=== PATIENT | male | born 1950 | race American Indian/Alaskan Native ===

== ENCOUNTER 2016-12-28 19:48 | Observation (INO) | payer MEDICARE ==
[2016-12-28 19:49] VITALS: BMI 27.8
--- NOTE | 2016-12-28 20:13 | ED PDOC ---
Arrival/HPI - General Chief Complaint: Chest Pain Time Seen by Provider: 12/28/16 19:50 Historian: Patient - History of Present Illness Narrative History of Present Illness (Text): 12/28/16 20:10 Patient is a 66 year old male whose past medical history includes hypertension, who presents to the emergency department with sudden onset of midsternal chest pain described as heaviness since 16:00. Patient states he was sitting, eating when the pain began. He states the episode lasted for 5-10 minutes but resolved spontaneously. Patient states around 17:30 he felt the pain again. Denies shortness of breath, sweats, lightheadedness, fever, cough, abdominal pain, or back pain. He states he has never had this pain before. Denies family cardiac history. Denies tobacco use. PMD: Dr. Brianna Guerra Time/Duration: 4-6 hours Symptom Onset: Sudden Symptom Course: Unchanged Modifying Factors (Text): None Associated Symptoms (Text): None Past Medical History - Provider Review Nursing Documentation Reviewed: Yes - Past History Past History: No Previous - Infectious Disease Hx of Infectious Diseases: None - Tetanus Immunization Tetanus Immunization: Unknown - Past Medical History Past Medical History: No Previous - Cardiac Hx Pacemaker: No - Neurological Hx Paralysis: No - Hematological/Oncological Hx Blood Transfusions: No - Musculoskeletal/Rheumatological Hx Musculoskeletal Disorders: No - Psychiatric Hx Emotional Abuse: No Hx Physical Abuse: No Hx Substance Use: No - Past Surgical History Past Surgical History: No Previous - Anesthesia Hx Anesthesia Reactions: No Hx Malignant Hyperthermia: No - Suicidal Assessment Feels Threatened In Home Enviroment: No Family/Social History - Physician Review Nursing Documentation Reviewed: Yes Family/Social History: Unknown Family HX Smoking Status: Unknown If Ever Smoked Hx Alcohol Use: No Hx Substance Use: No Hx Substance Use Treatment: No Allergies/Home Meds Allergies/Adverse Reactions: Allergies No Known Allergies Allergy (Verified 06/29/12 06:54) Home Medications: Home Meds Medication Instructions Recorded Confirmed Lisinopril [Zestril] 10 mg PO ONCE 12/28/16 12/28/16 Review of Systems - Review of Systems Constitutional: absent: Fatigue Eyes: absent: Vision Changes ENT: absent: Hearing Changes Respiratory: absent: SOB Cardiovascular: Chest Pain Gastrointestinal: absent: Abdominal Pain, Diarrhea, Nausea, Vomiting Genitourinary Male: absent: Dysuria, Frequency, Hematuria Musculoskeletal: absent: Back Pain Skin: absent: Rash Neurological: absent: Headache Endocrine: absent: Diaphoresis Psychiatric: absent: Depression Physical Exam Vital Signs Reviewed: Yes Vital Signs Temp Pulse Resp BP Pulse Ox 12/28/16 19:53 98.4 F 59 L 20 153/86 H 98 Temperature: Afebrile Blood Pressure: Normal Pulse: Regular Respiratory Rate: Normal Appearance: Positive for: Well-Appearing, Non-Toxic, Comfortable Pain Distress: None Mental Status: Positive for: Alert and Oriented X 3 - Systems Exam Head: Present: Atraumatic, Normocephalic Pupils: Present: PERRL Extroacular Muscles: Present: EOMI Conjunctiva: Present: Normal Mouth: Present: Moist Mucous Membranes Neck: Present: Normal Range of Motion Respiratory/Chest: Present: Clear to Auscultation, Good Air Exchange. No: Respiratory Distress, Accessory Muscle Use Cardiovascular: Present: Regular Rate and Rhythm, Normal S1, S2. No: Murmurs Abdomen: Present: Normal Bowel Sounds. No: Tenderness, Distention, Peritoneal Signs Back: Present: Normal Inspection Upper Extremity: Present: Normal Inspection. No: Cyanosis, Edema Lower Extremity: Present: Normal Inspection. No: Edema Neurological: Present: GCS=15, CN II-XII Intact, Speech Normal Skin: Present: Warm, Dry, Normal Color. No: Rashes Psychiatric: Present: Alert, Oriented x 3, Normal Insight, Normal Concentration Medical Decision Making ED Course and Treatment: Impression: Patient is a 66 year old male whose past medical history includes hypertension, who presents to the emergency department with sudden onset of midsternal chest pain described as heaviness since 16:00. Differential Diagnosis included but are not limited to: ACS vs ptx vs pna Plan: -- Chest X-ray -- Aspirin -- Labs -- Reassess and disposition Prior Visits: Notes and results from previous visits were reviewed. Patient had an echocardiogram in 11/08 which showed normal ejection fraction and mild pulmonary hypertension. Progress Notes: 12/28/16 20:56 Trop x 1 negative. 12/28/16 21:[address] Chisholm who agrees with observation for chest pain due to clinical presentation, risk factors, and no prior cardiac workup, requesting Troponin every 6 hours [address] to consult Dr[address] Birch. - Lab Interpretations Lab Results: 12/28/16 20:00 12/28/16 20:00 Lab Results 12/28/16 20:00: Sodium 138, Potassium 3.9, Chloride 102, Carbon Dioxide 27, Anion Gap 13, BUN 16, Creatinine 0.9, Est GFR ( Amer) > 60, Est GFR (Non- Af Amer) > 60, Random Glucose 92, Calcium 9.3, Total Bilirubin 0.6, AST 31, ALT 32, Alkaline Phosphatase 86, Total Creatine Kinase 237 H, CK-MB (CK-2) 2.1, CK- MB (CK-2) % Cancelled, Troponin I < 0.01, Total Protein 8.4 H, Albumin 4.3, Globulin 4.1, Albumin/Globulin Ratio 1.0 L 12/28/16 20:00: D-Dimer, Quantitative 0.38 12/28/16 20:00: WBC 5.6 D, RBC 4.72, Hgb 14.2, Hct 40.9 L, MCV 86.7, MCH 30.1, MCHC 34.7, RDW 12.8, Plt Count 215, MPV 9.1, Gran % 38.9 L, Lymph % (Auto) 51.2 H, Hawkins % (Auto) 8.3 H, Eos % (Auto) 1.4 L, Baso % (Auto) 0.2, Gran # 2.16, Lymph # 2.8, Hawkins # 0.5, Eos # 0.1, Baso # 0.01 - RAD Interpretation Radiology Orders: 12/28/16 20:10 CHEST PORTABLE [RAD] Stat - EKG Interpretation EKG Interpretation (Text): EKG shows NSR at 62 BPM, no ST elevations. Interpreted by me. Interpreted by ED Physician: Yes Type: 12 lead EKG - Medication Orders Current Medication Orders: Discontinued Medications Aspirin (Aspirin Chewable) 324 mg PO STAT STA Stop: 12/28/16 20:11 Last Admin: 12/28/16 20:17 Dose: 324 mg - Elhamibe Statement The provider has reviewed the documentation as recorded by the Dilshad Andrea Provider Scribe Attestation: All medical record entries made by the Dilshad were at my direction and personally dictated by me. I have reviewed the chart and agree that the record accurately reflects my personal performance of the history, physical exam, medical decision making, and the department course for this patient. I have also personally directed, reviewed, and agree with the discharge instructions and disposition. Disposition/Present on Arrival - Present on Arrival Any Indicators Present on Arrival: No History of DVT/PE: No History of Uncontrolled Diabetes: No Urinary Catheter: No History of Decub. Ulcer: No History Surgical Site Infection Following: None - Disposition Have Diagnosis and Disposition been Completed?: Yes Diagnosis: Chest pain Disposition: HOSPITALIZED Disposition Time: 21:22 Patient Plan: Observation Condition: FAIR
[2016-12-28 20:18] LABS: ADD MANUAL DIFF? NO
[2016-12-28 20:22] LABS: BASO # 0.01 K/mm3 (0.0-2.0); BASO % 0.2 % (0.0-3.0); EOS # 0.1 (0.0-0.7); EOS % 1.4 % (1.5-5.0); GRAN # 2.16 (1.4-6.5); GRAN % 38.9 % (50.0-68.0); HEMATOCRIT 40.9 % (42.0-52.0); LYMPH # 2.8 (1.2-3.4); LYMPH % 51.2 % (22.0-35.0); MEAN CELL VOLUME 86.7 fL (80.0-105.0); MEAN CORPUSCULAR HEMOGLOBIN 30.1 pg (25.0-35.0); MEAN CORPUSCULAR HGB CONC 34.7 g/dl (31.0-37.0); MEAN PLATELET VOLUME 9.1 fl (7.0-11.0); MONO # 0.5 (0.1-0.6); MONO % 8.3 % (1.0-6.0); PLATELET COUNT 215 10^3/uL (120.0-450.0); RED CELL DISTRIBUTION WIDTH 12.8 % (11.5-14.5); WHITE BLOOD COUNT 5.6 10^3/ul (4.5-11.0)
[2016-12-28 20:30] LABS: ALKALINE PHOSPHATASE 86 U/L (38-133); ALT/SGPT 32 U/L (7-56); AST/SGOT 31 U/L (15-59); BILIRUBIN,TOTAL 0.6 mg/dL (0.2-1.3); BLOOD UREA NITROGEN 16 mg/dL (7-21); CALCIUM 9.3 mg/dL (8.4-10.5); CARBON DIOXIDE 27 mmol/L (21-33); CHLORIDE 102 mmol/L (98-107); GFR AFRICAN-AMERICAN > 60; GLUCOSE,RANDOM 92 mg/dL (70-110); POTASSIUM 3.9 mmol/L (3.6-5.0); SODIUM 138 mmol/L (132-148); TOTAL PROTEIN 8.4 g/dL (5.8-8.3)
[2016-12-28 20:42] LABS: TROPONIN I < 0.01 ng/mL
[2016-12-28 21:51] VITALS: O2SAT 97
[2016-12-28 23:44] VITALS: RESP 20
[2016-12-28 23:59] VITALS: TEMP 98.4
[2016-12-29 00:23] VITALS: BP 153/84; PULSE 59
--- NOTE | 2016-12-29 07:06 | HP ---
HISTORY OF PRESENT ILLNESS: I was called down to the Emergency Room this evening to see the patient. He is a 66-year-old man who presents with chest pain described as a heaviness since earlier in the day. He was sitting and eating and the pain began. It lasted 5-10 minutes and resolved, then he fel t the pain again, no shortness of breath. It went into his left arm a little bit and it is the first time it happened. PAST MEDICAL HISTORY: Nothing. Denies all past medical history. PAST SURGICAL HISTORY: Denies surgical history. FAMILY HISTORY: Denies any family history. SOCIAL HISTORY: No alcohol, no drugs. No substance abuse. No smoking. ALLERGIES: No known drug allergies. MEDICATIONS: He does take lisinopril, so I went back and asked him if he had hypertension and he corky d yes. He takes Zestril 10 mg once a day. REVIEW OF SYSTEMS: He had no acute vision changes or hearing changes, no neck pain, no sore throat, no shortness of breath. He had chest pain, tightness, pressure. No abdominal pain, diarrhea, nausea , vomiting. No problems urinating. No back pain. No rashes. No headaches. No sweating, no dizzin ess. No depression. PHYSICAL EXAMINATION: VITAL SIGNS: He had a 98.4 temp, 57 pulse, 20 respiratory rate, 153/86 blood pressure, 98% O2 sat on room air. GENERAL: Head is atraumatic, normocephalic. He is well appearing now. He is comfortable when I see him in the Emergency Room. He understands why he is there; he would prefer to go home, but he will stay overnight and get the blood test and a cardiology evaluation. HEENT: Head is atraumatic, normocephalic. Extraocular muscles are intact. Pupils equal, reactive t o light and accommodation. His throat is moist, no erythema. NECK: Supple, no JVD. HEART: Regular rate. Normal S1, S2. LUNGS: Clear to auscultation bilaterally. No wheezes, rhonchi or rales. ABDOMEN: Soft, nontender, positive bowel sounds, no guarding, no rebound, no CVA tenderness. EXTREMITIES: Have no edema. NEUROLOGIC: GCS is 15. Cranial nerves II-XII grossly intact. Speech is normal. SKIN: Warm and dry. PSYCHIATRIC: Alert and oriented x 3. LABORATORY DATA: He had multiple tests. He had a 5.6 white count, 14.2 hemoglobin, 40.9 hematocrit with 215 platelets. His D-dimer is 0.38. He has a 138 sodium, potassium 3.9, chloride 102, carbon d ioxide 27, anion gap of 13, BUN of 16, creatinine 0.9, GFR is greater than 60, sugar is 92, calcium i s 9.3, total bili is 0.6, AST is 31, ALT is 32, alkaline phosphatase is 86, total creatine kinase is 237. His troponin less than 0.01, total protein is 8.4, albumin is 4.3. He has a chest x-ray that i s pending. PLAN: He is going to have 2 more troponins this evening. He is going to have a consult with cardiotrevin anne. He will be on aspirin. I will put him back on his cardiac medication, heart healthy diet. He is on observation status. If he does well by tomorrow morning, we will discharge him and probably se nd him out for an outpatient stress test. I am hoping the troponin will stay flat and he has no more chest pain. The nurses will call me if anything changes. The patient is here for chest pain, rule out myocardial infarction on observation status. Paco Chisholm DO cc: [id number] TT: 12/29/2016 07:05:23 oh
[2016-12-29 08:02] LABS: ALKALINE PHOSPHATASE 73 U/L (38-133); ALT/SGPT 34 U/L (7-56); AST/SGOT 25 U/L (15-59); BILIRUBIN,TOTAL 0.6 mg/dL (0.2-1.3); BLOOD UREA NITROGEN 12 mg/dL (7-21); CALCIUM 9.1 mg/dL (8.4-10.5); CARBON DIOXIDE 26 mmol/L (21-33); CHLORIDE 105 mmol/L (95-110); GFR AFRICAN-AMERICAN > 60; GLUCOSE,RANDOM 94 mg/dL (70-110); POTASSIUM 3.8 mmol/L (3.6-5.0); SODIUM 139 mmol/L (132-148); TOTAL PROTEIN 7.4 g/dL (5.8-8.3)
[2016-12-29 08:03] LABS: HEMATOCRIT 39.6 % (42.0-52.0); MEAN CELL VOLUME 86.7 fL (80.0-105.0); MEAN CORPUSCULAR HEMOGLOBIN 29.3 pg (25.0-35.0); MEAN CORPUSCULAR HGB CONC 33.8 g/dl (31.0-37.0); MEAN PLATELET VOLUME 9.2 fl (7.0-11.0); RED CELL DISTRIBUTION WIDTH 12.9 % (11.5-14.5); WHITE BLOOD COUNT 5.4 10^3/ul (4.5-11.0)
--- NOTE | 2016-12-29 10:26 | CON ---
DATE: 12/29/2016 The patient is in room 269, bed 2. I am doing this consult on behalf of Dr. Birch, whom I am covering. REASON FOR CONSULTATION: Chest pain. HISTORY OF PRESENT ILLNESS: The patient is a 66-year-old male who has known case of hypertension and on medication, but 3 days he did not take any medication, then he developed yesterday pressure-like chest pain which lasted only 5 minutes. He was at home at rest at that time, so he walked from [address] [place] [address] to Emergency Room of [facility] without any chest pressure, chest pain, pressure-l marly. Pressure-like was only 5 minutes at home. After the pain was relieved, he started walking to [facility] Emergency Room. Prior to that, he had no history of exertional chest pains or shortness of breath or palpitation. PAST MEDICAL HISTORY: Positive for hypertension. He also had a hernia surgery in the past. PERSONAL HISTORY: Denies smoking. Drinks only rarely socially. FAMILY HISTORY: Sister has diabetes mellitus. HOME MEDICATIONS: The patient did not take medication for blood pressure for 3 days. REVIEW OF SYSTEMS: All the systems were reviewed, positives mentioned in the history. PHYSICAL EXAMINATION: VITAL SIGNS: Blood pressure 153/84, respirations 20, pulse 53, temperature 98.4. HEENT: Head is normocephalic. Eyes: Pupils normal. Conjunctivae normal. Nose and throat normal. NECK: JVP low. Carotids equal. THORAX: AP diameter normal. LUNGS: Clear. CARDIOVASCULAR: S1, S2. ABDOMEN: Soft, nontender, no organomegaly. Bowel sounds normal. EXTREMITIES: No clubbing, no cyanosis. LABORATORY DATA: WBC 5.4, hemoglobin 13.4. Yesterday, hemoglobin was 14.2. Hematocrit 39.6, yester day was 40.9. Platelets 220. Sodium 139, potassium 3.8, BUN 12, creatinine 0.8. Random glucose 94. Calcium 9.1. AST, ALT normal. Troponin x 3 negative. Total protein 7.4, albumin 3.7. EKG showed regular sinus rhythm, borderline criteria for LVH. Chest x-ray is clear. DIAGNOSES: Chest pain like pressure, rule out coronary artery disease, hypertension, poorly complian t. Did not take medicine for 3 days. Troponin x 3 is negative. PLAN: The patient put on lisinopril 10 mg and patient also received aspirin. Advised patient to res tart his medication and take an aspirin a day and he follows where the family sees on outpatient. He promised that he will see primary physician on Saturday. He will come back for a stress test as outpa tient. All instructions have been given to him. Cardiology department will get in touch with him al so for scheduling the stress test. In the meantime, I also told the patient if he gets any pressure like pain, he should come back to Emergency Room right away. Luis Eduardo Cardenas MD cc: [phone] TT: 12/29/2016 10:26:28 Confirmation # [id number] Dictation # [id number] lonnie
--- NOTE | 2016-12-29 11:05 | RAD ---
HISTORY: chest pain COMPARISON: No prior. FINDINGS: LUNGS: No active pulmonary disease. PLEURA: No significant pleural effusion identified, no pneumothorax apparent. CARDIOVASCULAR: Normal. OSSEOUS STRUCTURES: No significant abnormalities. VISUALIZED UPPER ABDOMEN: Normal. OTHER FINDINGS: None. IMPRESSION: No active disease.
--- NOTE | 2016-12-29 15:37 | CARD ---
APPROVED REPORT EKG Measurement Heart [id number] <Conclusion> Sinus rhythm with premature atrial complexes Minimal voltage criteria for LVH, may be normal variant Borderline ECG
--- NOTE | 2016-12-29 15:55 | DS ---
I saw him this morning in his room at [facility] on telemetry with Dr. Cardenas, the cardio logist. He is resting comfortably in bed. He slept well, he is eating well. No more chest pain. Yoni wallis wants to go home. PHYSICAL EXAMINATION: VITAL SIGNS: 98.4 temp, 59 pulse, 145/83 blood pressure, 20 respiratory rate, 97% O2 sat on room air . HEENT: Head is atraumatic, normocephalic. Throat is moist. NECK: Supple. HEART: Regular rate. LUNGS: Clear to auscultation with decreased breath sounds. ABDOMEN: Soft. EXTREMITIES: No edema. MEDICATIONS: He is currently on aspirin and Zestril. I put him back on his medications for his bloo d pressure. LABORATORY DATA: He has a 139 sodium, potassium 3.8, BUN 12, creatinine 0.8, GFR is greater than 60, sugar is 94, calcium is 9.1, total bili is 0.6, AST is 25, ALT is 34, alk phosphatase 73, total prot ein is 7.4. All 3 troponins are less than 0.01. D-dimer is 0.38. He was seen by Dr. Cardenas. He is going to schedule him for an outpatient stress test. The patient h as his medicine at home. He said he stopped taking them 3-4 days and now he will take them again. Yoni wallis will also add a baby aspirin 81 mg to his list of medications plus the Zestril, which is 10 mg once a day. He will follow up with his primary care doctor this week. The patient came in with chest pa in. It was not cardiac. Paco Chisholm DO cc: [id number] TT: 12/29/2016 15:54:59 rn
== END 2016-12-29 11:39 | disposition home or self-care (01) ==
LOC: ED 19:48 → ERH 21:08 → 2RNO 22:07
PROVIDERS: ADMIT Family Medicine; ATTEND Family Medicine
DX: R07.89 Other chest pain (principal); I10 Essential (primary) hypertension; Z91.14 Patient's other noncompliance with medication regimen; Z83.3 Family history of diabetes mellitus
CPT/HCPCS: 36415; 71010; 80053; 82550; 82553; 84484; 85025; 85027; 85378; 93005; 99285; G0378

== ENCOUNTER 2017-04-14 08:44 | Observation (INO) | payer MEDICARE ==
[2017-04-14] MEDS ORDERED: Sodium Chloride 0.9% 500 ML IV STA (09:18)
--- NOTE | 2017-04-14 09:23 | ED PDOC ---
Arrival/HPI - General Chief Complaint: Weakness/Neurological Deficit Time Seen by Provider: 04/14/17 09:07 Historian: Patient - History of Present Illness Narrative History of Present Illness (Text): 04/14/17 09:19 66yr old male with hx of htn presents today with generalized weakness, fatigue, dizziness that started last night. denies cp or sob at present time. no fever/ chills. denies abdominal pain, no n/v/d/c. no urinary symptoms. denies headache. no medications take at home. pt states he did not take his BP medication today. no other complaints. Symptom Onset: Gradual Symptom Course: Worsening Quality: Unable to Describe Past Medical History - Provider Review Nursing Documentation Reviewed: Yes - Travel History Have you recently traveled outside [place] w/in the past 3 mons?: No - Past History Past History: No Previous - Infectious Disease Hx of Infectious Diseases: None - Tetanus Immunization Tetanus Immunization: Unknown - Past Medical History Past Medical History: No Previous - Cardiac Hx Cardiac Disorders: Yes Hx Hypertension: Yes - Neurological Hx Paralysis: No - Hematological/Oncological Hx Blood Transfusions: No - Musculoskeletal/Rheumatological Hx Falls: No - Psychiatric Hx Emotional Abuse: No Hx Physical Abuse: No Hx Substance Use: No - Past Surgical History Past Surgical History: No Previous - Surgical History Hx Inguinal Hernia Repair: Yes - Anesthesia Hx Anesthesia Reactions: No Hx Malignant Hyperthermia: No - Suicidal Assessment Feels Threatened In Home Enviroment: No Family/Social History - Physician Review Nursing Documentation Reviewed: Yes Family/Social History: Unknown Family HX Smoking Status: Never Smoked Hx Alcohol Use: No Hx Substance Use: No Hx Substance Use Treatment: No Allergies/Home Meds Allergies/Adverse Reactions: Allergies No Known Allergies Allergy (Verified 04/14/17 09:05) Home Medications: Home Meds Medication Instructions Recorded Confirmed Lisinopril [Zestril] 10 mg PO ONCE 12/28/16 04/14/17 Review of Systems - Review of Systems Constitutional: Fatigue. absent: Fevers ENT: absent: Sinus Congestion Respiratory: absent: SOB, Cough Cardiovascular: absent: Chest Pain, Palpitations Gastrointestinal: absent: Abdominal Pain, Nausea, Vomiting Genitourinary Male: absent: Dysuria, Frequency, Hematuria Musculoskeletal: absent: Arthralgias, Back Pain, Neck Pain Skin: absent: Rash, Pruritis Neurological: Dizziness. absent: Headache, Focal Weakness Psychiatric: absent: Anxiety, Depression, Suicidal Ideation Physical Exam Vital Signs Reviewed: Yes Vital Signs Temp Pulse Resp BP Pulse Ox 04/14/17 09:01 98.5 F 54 L 16 151/85 H 97 Temperature: Afebrile Blood Pressure: Hypertensive Pulse: Regular Respiratory Rate: Normal Appearance: Positive for: Well-Appearing, Non-Toxic, Comfortable Pain Distress: None Mental Status: Positive for: Alert and Oriented X 3 Finger Stick Blood Glucose: 109 - Systems Exam Head: Present: Atraumatic Mouth: Present: Moist Mucous Membranes Neck: Present: Normal Range of Motion Respiratory/Chest: Present: Clear to Auscultation, Good Air Exchange. No: Respiratory Distress, Accessory Muscle Use Cardiovascular: Present: Regular Rate and Rhythm, Normal S1, S2. No: Murmurs Abdomen: Present: Normal Bowel Sounds. No: Tenderness, Distention, Peritoneal Signs, Rebound, Guarding Back: Present: Normal Inspection Upper Extremity: Present: Normal Inspection Lower Extremity: Present: Edema (+ 1+ edema bilaterally), NORMAL PULSES, Normal ROM, Neurovascularly Intact, Capillary Refill < 2 s. No: CALF TENDERNESS, Tenderness Neurological: Present: GCS=15 Skin: Present: Warm, Dry, Normal Color. No: Rashes Psychiatric: Present: Alert, Oriented x 3 Medical Decision Making ED Course and Treatment: 04/14/17 09:22 66yr old male with dizziness, fatigue, generalized weakness. Baseline NIH score zero. cbc wnl cmp wnl trop wnl cxr; wnl ua: + trace blood, no leukocytes head ct: FINDINGS HEMORRHAGE: No intracranial hemorrhage. BRAIN: No mass effect or edema. No atrophy or chronic microvascular ischemic changes. VENTRICLES: Unremarkable. No hydrocephalus. CALVARIUM: No calvarial fracture. Punctate radiopaque foreign bodies or calcifications are seen within the subcutaneous soft tissues of the scalp, predominantly near the vertex, uncertain significance. PARANASAL SINUSES: Unremarkable as visualized. No significant inflammatory changes. MASTOID AIR CELLS: Unremarkable as visualized. No inflammatory changes. OTHER FINDINGS: None. IMPRESSION: No intracranial mass, hemorrhage or evidence of acute infarct. ekg; Sinus bradycardia at 52 bpm normal axis and no ST elevations discussed results with patient in depth. asa given PO pt does not meet criteria for TPA: NIH score of zero, symptom onset >4.5 hours. pt with dizziness, weakness, near syncope will admit observational status for near syncope and generalized weakness. lives alone. fall risk. case discussed with dr. manrique; accepts observational status admission impression; dizziness, weakness, near syncope, b/l lower leg edema observational status. - Lab Interpretations Lab Results: 04/14/17 09:26 04/14/17 09:26 Lab Results 04/14/17 09:26: Urine Color Yellow, Urine Appearance Clear, Urine pH 5.5, Ur Specific [place] >= 1.030, Urine Protein Trace H, Urine Glucose (UA) Negative, Urine Ketones Negative, Urine Blood Trace-intact H, Urine Nitrate Negative, Urine Bilirubin Negative, Urine Urobilinogen 1.0 H, Ur Leukocyte Esterase Negative, Urine RBC 1 - 3, Urine WBC 0 - 2, Ur Epithelial Cells None, Amorphous Sediment Trace, Urine Bacteria Few 04/14/17 09:26: WBC 5.1, RBC 4.81, Hgb 14.4, Hct 42.2, MCV 87.7, MCH 29.9, MCHC 34.1, RDW 13.1, Plt Count 217, MPV 8.9, Gran % 53.7, Lymph % (Auto) 35.0, Vance % (Auto) 8.9 H, Eos % (Auto) 2.2, Baso % (Auto) 0.2, Gran # 2.71, Lymph # 1.8, Vance # 0.5, Eos # 0.1, Baso # 0.01 04/14/17 09:26: Sodium 141, Potassium 3.9, Chloride 107, Carbon Dioxide 25, Anion Gap 13, BUN 19, Creatinine 0.8, Est GFR ( Amer) > 60, Est GFR (Non- Af Amer) > 60, Random Glucose 102, Calcium 9.6, Total Bilirubin 0.5, AST 36, ALT 35, Alkaline Phosphatase 82, Lactate Dehydrogenase 511, Total Creatine Kinase 292 H, CK-MB (CK-2) 1.6, CK-MB (CK-2) % Cancelled, Troponin I < 0.01, Total Protein 7.9, Albumin 4.2, Globulin 3.6, Albumin/Globulin Ratio 1.2 - RAD Interpretation Radiology Orders: 04/14/17 09:18 HEAD W/O CONTRAST [CT] Stat CHEST PORTABLE [RAD] Stat - Medication Orders Current Medication Orders: Discontinued Medications Sodium Chloride (Sodium Chloride 0.9%) 500 mls @ 999 mls/hr IV .Q31M STA Stop: 04/14/17 09:48 Last Admin: 04/14/17 09:34 Dose: 999 mls/hr NIHSS Scale ([place]) Time Performed: 09:18 - How Severe is the [place] Baseline Level of Consciousness: 0=Alert LOC to Questions: 0=Both comments correct LOC to commands: 0=Obeys both correctly Best Gaze: 0=Normal Visual: 0=No visual loss Facial: 0=Normal Motor Arm - Left: 0=No drift Motor Arm - Right: 0=No drift Motor Leg - Left: 0=No drift Motor Leg - Right: 0=No drift Limb Ataxia: 0=Absent Sensory: 0=Normal Best Language: 0=No aphasia Dysarthia: 0=Normal articulation Extinction & Inattention (Neglect): 0=Normal, no object Score: 0 Risk Level: No Stroke Risk Disposition/Present on Arrival - Present on Arrival Any Indicators Present on Arrival: No History of DVT/PE: No History of Uncontrolled Diabetes: No Urinary Catheter: No History of Decub. Ulcer: No History Surgical Site Infection Following: None - Disposition Have Diagnosis and Disposition been Completed?: Yes Diagnosis: Near syncope, Dizziness, Edema of both legs Disposition: HOSPITALIZED Disposition Time: 10:30 Patient Plan: Observation, Telemetry (remote tele) Patient Problems: Current Active Problems Problem Status Onset Dizziness Acute Edema of both legs Acute Near syncope Acute Condition: FAIR [facility], [Non-Staff] - Follow up with primary Forms: [employer] (Nepali)
[2017-04-14 09:31] LABS: BASO # 0.01 K/mm3 (0.0-2.0); BASO % 0.2 % (0.0-3.0); EOS # 0.1 (0.0-0.7); EOS % 2.2 % (1.5-5.0); GRAN # 2.71 (1.4-6.5); GRAN % 53.7 % (50.0-68.0); HEMATOCRIT 42.2 % (42.0-52.0); LYMPH # 1.8 (1.2-3.4); MEAN CELL VOLUME 87.7 fl (80.0-105.0); MEAN CORPUSCULAR HEMOGLOBIN 29.9 pg (25.0-35.0); MEAN CORPUSCULAR HGB CONC 34.1 g/dl (31.0-37.0); MEAN PLATELET VOLUME 8.9 fl (7.0-11.0); MONO # 0.5 (0.1-0.6); MONO % 8.9 % (1.0-6.0); PH,URINE 5.5 (4.7-8.0); RED CELL DISTRIBUTION WIDTH 13.1 % (11.5-14.5); URINE BILIRUBIN NEGATIVE (NEGATIVE); URINE BLOOD TRACE-INTACT (NEGATIVE); URINE GLUCOSE (UA) NEGATIVE (NEGATIVE); URINE KETONE NEGATIVE (NEGATIVE); URINE LEUKOCYTE ESTERASE NEGATIVE Leu/uL (NEGATIVE); URINE PROTEIN TRACE mg/dL (<30 mg/dL); WHITE BLOOD COUNT 5.1 10^3/ul (4.5-11.0)
[2017-04-14 09:32] LABS: URINE APPEARANCE CLEAR (CLEAR); URINE COLOR YELLOW (YELLOW)
[2017-04-14 09:37] LABS: URINE AMORPHOUS SEDIMENT TRACE; URINE BACTERIA FEW (NEG); URINE WBC 0 - 2 /hpf (0-6)
[2017-04-14 09:39] VITALS: TEMP 98.5
[2017-04-14 09:45] LABS: ALB/GLOB RATIO 1.2 (1.1-1.8); ALKALINE PHOSPHATASE 82 U/L (38-133); ALT/SGPT 35 U/L (7-56); AST/SGOT 36 U/L (15-59); BILIRUBIN,TOTAL 0.5 mg/dL (0.2-1.3); BLOOD UREA NITROGEN 19 mg/dL (7-21); CALCIUM 9.6 mg/dL (8.4-10.5); CARBON DIOXIDE 25 mmol/L (21-33); CHLORIDE 107 mmol/L (98-107); GFR AFRICAN-AMERICAN > 60; GLUCOSE,RANDOM 102 mg/dL (70-110); POTASSIUM 3.9 mmol/L (3.6-5.0); SODIUM 141 mmol/L (132-148); TOTAL PROTEIN 7.9 g/dL (5.8-8.3)
[2017-04-14 09:57] LABS: TROPONIN I < 0.01 ng/mL
--- NOTE | 2017-04-14 10:17 | CT ---
PROCEDURE: CT HEAD WITHOUT CONTRAST. HISTORY: dizziness COMPARISON: None available. TECHNIQUE: Axial computed tomography images were obtained through the head/brain without intravenous contrast. Radiation dose: Total exam DLP = 725.84 mGy-cm. This CT exam was performed using one or more of the following dose reduction techniques: Automated exposure control, adjustment of the mA and/or kV according to patient size, and/or use of iterative reconstruction technique. FINDINGS: HEMORRHAGE: No intracranial hemorrhage. BRAIN: No mass effect or edema. No atrophy or chronic microvascular ischemic changes. VENTRICLES: Unremarkable. No hydrocephalus. CALVARIUM: No calvarial fracture. Punctate radiopaque foreign bodies or calcifications are seen within the subcutaneous soft tissues of the scalp, predominantly near the vertex, uncertain significance. PARANASAL SINUSES: Unremarkable as visualized. No significant inflammatory changes. MASTOID AIR CELLS: Unremarkable as visualized. No inflammatory changes. OTHER FINDINGS: None. IMPRESSION: No intracranial mass, hemorrhage or evidence of acute infarct.
--- NOTE | 2017-04-14 11:03 | CARD ---
APPROVED REPORT EKG Measurement Heart [id number] <Conclusion> Sinus bradycardia Otherwise normal ECG
[2017-04-14 11:50] VITALS: BMI 24.2
--- NOTE | 2017-04-14 12:04 | RAD ---
HISTORY: weakness COMPARISON: 12/28/2016 FINDINGS: LUNGS: No active pulmonary disease. PLEURA: No significant pleural effusion identified, no pneumothorax apparent. CARDIOVASCULAR: Normal. OSSEOUS STRUCTURES: No significant abnormalities. VISUALIZED UPPER ABDOMEN: Normal. OTHER FINDINGS: None. IMPRESSION: No active disease.
--- NOTE | 2017-04-15 01:59 | HP ---
HISTORY OF PRESENT ILLNESS: I was called on to the emergency room today to say hi to Mr. Doran who is being admitted. He is a 66-year-old -[place] male who has generalized weakness, fatigue and dizziness started last night, it would not go away. No chest pain or shortness of breath. He was recently here on my service with chest pain which he did well. He is just not feeling well overall. No headaches. He has taken his medicines at home, lisinopril for hypertension. PAST MEDICAL HISTORY: Hypertension. He did have chest pain a few months ago I believe and that was a normal evaluation. No falls. No alcohol. No drugs. No smoking. He had a hernia repair one time in the past surgically. FAMILY HISTORY: There is hypertension in the family. ALLERGIES: HE HAS NO KNOWN DRUG ALLERGIES. MEDICATIONS: The only medicine he takes is lisinopril 10 mg a day. REVIEW OF SYSTEMS: No acute vision changes or hearing changes. He is dizzy. He is tired. No sore throat. No neck pain. No shortness of breath or cough. No chest pain. No palpitations. No abdominal pain. No nausea, vomiting, constipation or diarrhea. No problems urinating. No arthritis. No back pain. No rashes. No changes in skin. He is dizzy and lightheaded, not sure why. Little weak. Not anxious. Not depressed. PHYSICAL EXAMINATION: GENERAL: He is alert. He is comfortable. He is not toxic, well appearing. VITAL SIGNS: He has a 98.5 temperature, 54 pulse, 16 respiratory rate, 151/85 blood pressure, and 97% O2 sat on room air. HEENT: Head atraumatic, normocephalic. Mucous membranes are moist. Extraocular muscles are intact. Pupils are equal, reactive to light and accommodation. HEART: Regular rate. LUNGS: Clear to auscultation bilaterally. ABDOMEN: Soft, nontender. Positive bowel sounds. SKIN: Intact, warm and dry. NEUROLOGIC: Alert and oriented x3. EXTREMITIES: His legs; he has got +1 pitting edema right and +1 pitting edema left in the ankles. He is unsure why he is having swelling. LYMPH: Thyroid midline. No palpable appreciable lymphadenopathy. LABORATORY DATA: He had multiple tests done. He has a 5.1 white count, 14.4 hemoglobin, 42.2 hematocrit with 217 platelets. He has 141 sodium, potassium 3.9, BUN is 19, and creatinine 0.8. GFR is greater than 60. Sugar is 102. Calcium is 9.6, total bilirubin is 0.5, AST is 36, ALT is 35, alkaline phosphatase 82, lactic dehydrogenase is 511. Total creatine kinase is 292, little high. Troponin I is less than 0.01, that is his first one. Total protein 7.9. Albumin is 4.2. Globulin is 3.6. Urine is trace protein, otherwise no bacteria. He also had a CAT scan of the head which showed no intracranial mass, hemorrhage, or evidence of acute infarct. PLAN: He will be put on observation status. He will consult of neurology and cardiology. We will do neuro checks, get physical therapy involved. Give him a shot of Lasix, put him back on his lisinopril. Hopefully, he will be able to be discharged tomorrow. He will be on observation status. We will see how the labs look tomorrow. The patient was here for syncope, dizziness, weakness and edema. Paco Chisholm DO
[2017-04-15 07:18] LABS: ALB/GLOB RATIO 1.1 (1.1-1.8); ALKALINE PHOSPHATASE 68 U/L (38-133); ALT/SGPT 34 U/L (7-56); AST/SGOT 33 U/L (15-59); BILIRUBIN,TOTAL 0.7 mg/dL (0.2-1.3); BLOOD UREA NITROGEN 15 mg/dL (7-21); CALCIUM 9.3 mg/dL (8.4-10.5); CARBON DIOXIDE 26 mmol/L (21-33); CHLORIDE 107 mmol/L (98-107); GFR AFRICAN-AMERICAN > 60; GLUCOSE,RANDOM 94 mg/dL (70-110); POTASSIUM 4.2 mmol/L (3.6-5.0); SODIUM 142 mmol/L (132-148); TOTAL PROTEIN 7.3 g/dL (5.8-8.3)
[2017-04-15 07:52] LABS: HEMATOCRIT 42.6 % (42.0-52.0); MEAN CELL VOLUME 87.7 fl (80.0-105.0); MEAN CORPUSCULAR HEMOGLOBIN 29.8 pg (25.0-35.0); RED CELL DISTRIBUTION WIDTH 12.8 % (11.5-14.5); WHITE BLOOD COUNT 5.7 10^3/ul (4.5-11.0)
[2017-04-15 08:55] VITALS: BP 135/81; RESP 20; O2SAT 97
--- NOTE | 2017-04-15 12:26 | CP.PCM.CON ---
<Jose Alberto Eddy - Last Filed: 04/15/17 12:21> History of Present Illness - History of Present Illness History of Present Illness: Neurology Consult Note for Dr. Coronel Reason for Consult: Syncope, dizziness 66 y/o M with PMH of HTN presents to the hospital after feeling lightheaded and having generalized weakness after waking up. Patient states he has recently felt weak and admits to decreased PO intake. In addition, patient states he was sleeping and when he awoke he got up quickly. After standing up, the patient admits to feeling dizzy and lightheaded. The patient states he did not fall down or lose consciousness. Of note, patient was recently in the hospital for chest pain and had a full workup. Patient denies feeling like this in the past. Today, patient states he is feeling well with no dizzness and does not feel like he has to pass out. Denies CP, SOB, N/V/D, dizziness, fever, chills, dysuria, changes in vision or gait. PMH: HTN FMH: HTN Social Hx: Denies alcohol, tobacco, or illicit drugs Allergies: NKDA Medications: Reviewed, as per chart Review of Systems - Review of Systems Review of Systems: 13 point review of systems as per HPI, otherwise negative Past Patient History - Infectious Disease Hx of Infectious Diseases: None - Tetanus Immunizations Tetanus Immunization: Unknown - Past Social History Smoking Status: Never Smoked - CARDIAC Hx Cardiac Disorders: Yes Hx Hypertension: Yes - NEUROLOGICAL Hx Paralysis: No - HEMATOLOGICAL/ONCOLOGICAL Hx Blood Transfusions: No - MUSCULOSKELETAL/RHEUMATOLOGICAL Hx Falls: No - PSYCHIATRIC Hx Emotional Abuse: No Hx Physical Abuse: No - SURGICAL HISTORY Hx Surgeries: Yes - ANESTHESIA Hx Anesthesia Reactions: No Hx Malignant Hyperthermia: No Meds Allergies/Adverse Reactions: Allergies Allergy/AdvReac Type Severity Reaction Status Date / Time No Known Allergies Allergy Verified 04/14/17 09:05 - Medications Medications: Current Medications Furosemide (Lasix) 40 mg IVP DAILY [facility] Last Admin: 04/15/17 09:54 Dose: 40 mg Lisinopril (Zestril) 10 mg PO ONCE KEIRA Last Admin: 04/15/17 10:25 Dose: 10 mg Physical Exam - Constitutional Appears: Well, No Acute Distress - Head Exam Head Exam: ATRAUMATIC, NORMAL INSPECTION, NORMOCEPHALIC - Eye Exam Eye Exam: EOMI, Normal appearance - ENT Exam ENT Exam: Mucous Membranes Moist - Neck Exam Neck exam: Positive for: Normal Inspection. Negative for: Lymphadenopathy - Respiratory Exam Respiratory Exam: Clear to Auscultation Bilateral, NORMAL BREATHING PATTERN. absent: Rales, Rhonchi, Wheezes - Cardiovascular Exam Cardiovascular Exam: RRR, +S1, +S2 - GI/Abdominal Exam GI & Abdominal Exam: Normal Bowel Sounds, Soft. absent: Tenderness - Extremities Exam Extremities exam: Positive for: normal inspection. Negative for: calf tenderness, pedal edema - Neurological Exam Neurological exam: Alert, CN II-XII Intact, Oriented x3 Additional comments: No pronator drift No motor or sensory deficits - Psychiatric Exam Psychiatric exam: Normal Affect, Normal Mood - Skin Skin Exam: Intact, Normal Color, Warm Results - Vital Signs Recent Vital Signs: Last Vital Signs Temp 98.5 F 04/15/17 08:54 Pulse 48 L 04/15/17 08:54 Resp 20 04/15/17 08:54 BP 135/81 04/15/17 09:54 Pulse Ox 97 04/15/17 08:54 - Labs Result Diagrams: 04/15/17 06:20 04/15/17 06:20 Labs: Laboratory Results - last 24 hr 04/14/17 04/15/17 04/15/17 19:05 06:20 06:20 WBC 5.7 RBC 4.86 Hgb 14.5 Hct 42.6 MCV 87.7 MCH 29.8 MCHC 34.0 RDW 12.8 Plt Count 205 MPV 9.0 Sodium 142 Potassium 4.2 Chloride 107 Carbon Dioxide 26 Anion Gap 13 BUN 15 Creatinine 0.8 Est GFR ( Amer) > 60 Est GFR (Non-Af Amer) > 60 Random Glucose 94 Calcium 9.3 Total Bilirubin 0.7 AST 33 ALT 34 Alkaline Phosphatase 68 Troponin I < 0.01 Total Protein 7.3 Albumin 3.9 Globulin 3.4 Albumin/Globulin Ratio 1.1 Assessment & Plan - Assessment and Plan (Free Text) Plan: 66 y/o M with PMH of HTN presents with syncope likely secondary to vasovagal component and bradycardia. Patient was found to be bradycardic on admission to hospital with HR in the 40's and 50's. Patient will benefit from proper nutrition and oral hydration. Patient may also adjust BP meds to avoid bradycardia. Pt is neurologically stable, will sign off at this time. Plan: Avoid sedative medications Oral hydration Consider adjusting BP meds Surjit, PGY-2 <Warren Coronel - Last Filed: 04/15/17 13:06> Meds - Medications Medications: Current Medications Furosemide (Lasix) 40 mg IVP DAILY [facility] Last Admin: 04/15/17 09:54 Dose: 40 mg Lisinopril (Zestril) 10 mg PO ONCE [facility]IRA Last Admin: 04/15/17 10:25 Dose: 10 mg Results - Vital Signs Recent Vital Signs: Last Vital Signs Temp 98.5 F 04/15/17 08:54 Pulse 50 L 04/15/17 10:39 Resp 20 04/15/17 08:54 BP 135/81 04/15/17 09:54 Pulse Ox 97 04/15/17 08:54 - Labs Result Diagrams: 04/15/17 06:20 04/15/17 06:20 Labs: Laboratory Results - last 24 hr 04/14/17 04/15/17 04/15/17 19:05 06:20 06:20 WBC 5.7 RBC 4.86 Hgb 14.5 Hct 42.6 MCV 87.7 MCH 29.8 MCHC 34.0 RDW 12.8 Plt Count 205 MPV 9.0 Sodium 142 Potassium 4.2 Chloride 107 Carbon Dioxide 26 Anion Gap 13 BUN 15 Creatinine 0.8 Est GFR ( Amer) > 60 Est GFR (Non-Af Amer) > 60 Random Glucose 94 Calcium 9.3 Total Bilirubin 0.7 AST 33 ALT 34 Alkaline Phosphatase 68 Troponin I < 0.01 Total Protein 7.3 Albumin 3.9 Globulin 3.4 Albumin/Globulin Ratio 1.1 Attending/Attestation - Attestation I have personally seen and examined this patient.: Yes I have fully participated in the care of the patient.: Yes I have reviewed all pertinent clinical information: Yes
[2017-04-15 13:06] VITALS: PULSE 50
--- NOTE | 2017-04-15 22:32 | CON ---
DATE: 04/15/2017 HISTORY: The patient is a 66-year-old male who presents with atypical chest pain and an episode of dizziness. The patient's past medical history includes a history of hypertension in which he is intermittently compliant with his medications. He was also found to be borderline hypercholesterolemic in which he is not taking any medications. The patient states that for approximately 3-4 months ago he had a stress test done at [facility] which he reports to be unremarkable. SOCIAL HISTORY: Denies smoking. REVIEW OF SYSTEMS: A 14-point review of systems was reviewed in detail. There is no cardiac symptomatology noted. PHYSICAL EXAMINATION: VITAL SIGNS: Blood pressure 135/81, heart rate in the 40s, normal sinus rhythm. NECK: Negative JVD. LUNGS: Without rales. HEART: With S1 and S2. EXTREMITIES: Without edema. LABORATORY DATA: Include an EKG that shows no acute changes. Troponins are negative x3. The hemoglobin is normal. IMPRESSION 1. Transient dizziness, which is now resolved. 2. Hypertension. 3. Chest pain of noncardiac origin. 4. Hypercholesterolemia. Given these findings, no further cardiac workup is necessary. 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 Samir Birch MD
--- NOTE | 2017-04-16 05:40 | DS ---
HISTORY OF PRESENT ILLNESS: I saw Donte resting comfortably this morning, sitting up in bed. He is doing much better. He is feeling better. No chest pain. No shortness of breath. No abdominal pain. No dizziness. No problems. We are waiting for neurology and cardiology to see him. He is on aspirin and Lasix, which I think made a big difference. His legs are not swollen any more today. He is on Zestril, his regular blood pressure pill. PHYSICAL EXAMINATION: VITAL SIGNS: He has 98.5 temp, 54 pulse, 151/85 blood pressure, 16 respiratory rate and 97% O2 sat on room air. HEENT: Head atraumatic, normocephalic. HEART: Regular rate. LUNGS: Clear to auscultation. ABDOMEN: Soft. EXTREMITIES: No edema today. LABORATORY DATA: He has a white count of 5.7, hemoglobin 14.5, hematocrit 42.6 and platelets of 205. Sodium 142, potassium 4.2, BUN 15, and creatinine 0.8. GFR is greater than 60. Sugar is 94. Calcium is 9.3, total bilirubin is 0.7, AST is 33, ALT is 34, alkaline phosphatase 68. All three troponin is less than 0.01. BNP is 73.1 and total protein is 7.3. Urine was few. ASSESSMENT AND PLAN: Overall, he is improved. . He had a CAT scan and a chest x-ray. CAT scan of head was fine. Chest x-ray was fine. An EKG, sinus bradycardia, otherwise normal. So, hopefully we will discharge him later today. Mr. Donte Doran was here for syncope, dizziness and edema. Paco Chisholm DO [place]
== END 2017-04-15 13:09 | disposition home or self-care (01) ==
LOC: ED 08:44 → ERH 10:49 → 3RSO 13:10
PROVIDERS: ADMIT Family Medicine; ATTEND Family Medicine
DX: R55 Syncope and collapse (principal); R42 Dizziness and giddiness; I10 Essential (primary) hypertension; R07.89 Other chest pain; R00.1 Bradycardia, unspecified; R60.0 Localized edema; R53.1 Weakness; E78.00 Pure hypercholesterolemia, unspecified
CPT/HCPCS: 36415; 70450; 71010; 80053; 81001; 82550; 82553; 82948; 83615; 83880; 84484; 85025; 85027; 93005; 96361; 96374; 96376; 97116; 97161; 99285; G0378; G8978; G8979; G8980; J1940; J7040